=== PATIENT | female | born 1945 | race Caucasian/White ===

== ENCOUNTER → 2017-03-06 | Outpatient (CLI) | payer MEDICARE ==
--- NOTE | 2017-03-06 16:04 | BD ---
EXAMINATION TYPE: MG DEXA axial skeleton. DATE OF EXAM: 03/06/2017 CLINICAL HISTORY: Postmenopausal symptoms. Height: 60.75 Weight: 124 FRAX RISK QUESTIONS: Alcohol (3 or more units per day): no Family History (Parent hip fracture): no Glucocorticoids (More than 3mos): yes (Ex: prednisone, prednisolone, methylprednisolone, dexamethasone, and hydrocortisone). History of Fracture in Adulthood: yes Secondary Osteoporosis: 1. Type 1 Diabetes: no 2. Hyperthyroidism: no 3. Menopause before 45: no 4. Malnutrition: no 5. Chronic liver disease: no Rheumatoid Arthritis: no Current Tobacco Use: no RISK FACTORS HISTORY OF: Hip Fracture (Right/Left): no Spine Fracture: no History of Wrist Fracture: yes, right When: about 7 years ago Surgery to Wrist (right): yes When: about 7 years ago Family History of Osteoporosis: no Active: yes Diet low in dairy products/other sources of calcium: no Postmenopausal woman: yes Take estrogen and/or progesterone medications: no Lost more than 2 inches in height since high school: unsure, states may have been 62 or 63 inches joanne l at one time Frequent falls: no Poor Health: no Hyperparathyroidism: no Adrenal Insufficiency: no MEDICATIONS: Prednisone or other steroids: yes How Long: at least over 10 years Thyroid Medications: no Osteoporosis Medications: no Additional Medications: blood pressure meds EXAM MEASUREMENTS: Bone mineral densitometry was performed using the [employer]. Bone mineral density as measured about the Lumbar spine is: ----- L1-L4(G/cm2): 0.895 T Score Values are as follows: ----- L2: -2.9 ----- L3: -2.2 ----- L4: -2.2 ----- L1-L4: -2.4 Bone mineral density BASELINE Bone mineral density about the R hip (g/cm2): 0.619 Bone mineral density about the L hip (g/cm2): 0.626 T Score values are as follows: -----R Neck: -3.0 -----L Neck: -3.0 -----R Total: -2.3 -----L Total: -2.3 Bone mineral density BASELINE IMPRESSION: Osteopenia (T Score between -2.5 and -1 as noted by T score values) in regards to both hips. There is slightly increased risk of fracture and the patient may be considered for treatment. Re-Screen 2-5 years. NOTE: T-SCORE=SD OF THE YOUNG ADULT MEAN.
--- NOTE | 2017-03-10 11:00 | MM ---
Reason for exam: screening (asymptomatic). Last mammogram was performed 1 year and 1 month ago. History: Patient is postmenopausal. Benign stereotactic core biopsy of the right breast, May 21, 2004. Benign stereotactic core biopsy of the right breast, August 13, 2000. Benign excisional biopsy of the left breast, November 08, 1999. Benign excisional biopsy of the left breast, February 27, 1998. Benign excisional biopsy, February 14, 1997. 2 core biopsies of the right breast. Took hormonal contraceptives for 6 years beginning at age 23. Physical Findings: A clinical breast exam by your physician is recommended on an annual basis and results should be correlated with mammographic findings. MG 3D Screening Mammo W/Cad Bilateral CC and MLO view(s) were taken. Prior study comparison: February 06, 2016, bilateral MG 3d screening mammo w/cad. February 02, 2015, bilateral MG screening mammo w CAD. January 27, 2014, bilateral MG diagnostic mammo w CAD [facility]. There are scattered fibroglandular densities. Post biopsy change on the right breast. ASSESSMENT: Benign, BI-RAD 2 RECOMMENDATION: Routine screening mammogram of both breasts in 1 year.
== END | disposition home or self-care (01) ==
LOC: RADMAMWWP 12:43
PROVIDERS: ATTEND Family Medicine
DX: Z12.31 Encounter for screening mammogram for malignant neoplasm of breast (principal); M85.852 Other specified disorders of bone density and structure, left thigh; M85.851 Other specified disorders of bone density and structure, right thigh
CPT/HCPCS: 77080; 77063; G0202

== ENCOUNTER 2018-03-09 07:13 | Day surgery (SDC) | payer MEDICARE ==
[2018-03-04 15:45] VITALS: BMI 22.1
[~2018-03-09 07:13] MED LIST: LACTATED RINGERS 1,000 ML IV SCH; LIDOCAINE 1% 20 ML VIAL (10MG/ML) FOR IV START INTRADERMA PRN
[2018-03-09 07:31] VITALS: RESP 16; TEMP 98
[2018-03-09] MEDS ORDERED: LIDOCAINE 1% INJ 10MG/ML (20 ML MDV) ONE (08:46)
[2018-03-09] MEDS ORDERED: PROPOFOL 10 MG/ML 20 ML VIAL IV ONE (08:46)
--- NOTE | 2018-03-09 08:50 | P.GSHP ---
History of Present Illness H&P Date: 03/09/18 Chief Complaint: Screening colonoscopy This is a 72-year-old female referred from Dr. Moctezuma. Patient rents today for screening colonoscopy. Her last colonoscopy was over 8 years ago. She denies a significant GI complaints. Past Medical History Past Medical History: Asthma, Hypertension Additional Past Medical History / Comment(s): HX POLYPS History of Any Multi-Drug Resistant Organisms: None Reported Past Surgical History: Orthopedic Surgery Additional Past Surgical History / Comment(s): RT ARM ORIF WITH PLATE AND SCREWS , LEFT CATARACT Past Anesthesia/Blood Transfusion Reactions: No Reported Reaction Smoking Status: Former smoker - Past Family History Father Family Medical History: Cancer Additional Family Medical History / Comment(s): PROSTATE Medications and Allergies Home Medications Medication Instructions Recorded Confirmed Type Albuterol Nebulized [Ventolin 1 applic INHALATION Q4-6H PRN 03/04/18 03/09/18 History Nebulized] Albuterol Sulfate [Proair Hfa] 1 - 2 puff INHALATION Q6HR PRN 03/04/18 03/09/18 History Losartan Potassium 50 mg PO QAM 03/04/18 03/09/18 History Naproxen Sodium [Aleve] 220 mg PO Q12H PRN 03/04/18 03/09/18 History Allergies Allergy/AdvReac Type Severity Reaction Status Date / Time No Known Allergies Allergy Verified 03/09/18 07:31 Surgical - Exam Vital Signs Temp Pulse Resp BP Pulse Ox 98.0 F 85 16 168/75 95 03/09/18 07:29 03/09/18 07:29 03/09/18 07:29 03/09/18 07:29 03/09/18 07:29 - General well developed, no distress - Eyes PERRL - ENT normal pinna - Neck no masses - Respiratory normal expansion - Cardiovascular Rhythm: regular - Abdomen Abdomen: soft, non tender Assessment and Plan Assessment: We'll perform screening colonoscopy.
[2018-03-09] MEDS: LACTATED RINGERS 1,000 ML IV ONE ×2 (09:01→09:42)
[2018-03-09 09:17] VITALS: BP 144/80; PULSE 69
--- NOTE | 2018-03-09 09:27 | P.OP ---
Date of Procedure: 03/09/18 Preoperative Diagnosis: Screening colonoscopy Postoperative Diagnosis: Diverticulosis Hemorrhoids Procedure(s) Performed: Colonoscopy Anesthesia: MAC Surgeon: Armando Hines Pathology: none sent Condition: stable Disposition: PACU Description of Procedure: The patient's placed on the endoscopy table in the lateral position. She received IV sedation. Digital rectal exam was performed which revealed internal and external hemorrhoids. The flexible colonoscope was then placed patient anus and passed throughout the entire colon. The ileocecal valve was visualized. The cecum, ascending and transverse colon appeared normal. The descending and sigmoid colon had a few scattered diverticula. The scope was then brought back the rectum and this appeared normal. Scope was withdrawn from the patient. Internal and external Hemorrhoids were noted.
== END 2018-03-09 09:50 | disposition home or self-care (01) ==
LOC: ORWHC2ENDO 07:13
PROVIDERS: ATTEND Surgery
DX: Z12.11 Encounter for screening for malignant neoplasm of colon (principal); K57.30 Diverticulosis of large intestine without perforation or abscess without bleeding; K64.8 Other hemorrhoids; K64.4 Residual hemorrhoidal skin tags; J45.909 Unspecified asthma, uncomplicated; I10 Essential (primary) hypertension; Z79.899 Other long term (current) drug therapy; Z87.891 Personal history of nicotine dependence
CPT/HCPCS: J2001; J2704; G0121

== ENCOUNTER → 2018-03-13 | Outpatient (CLI) | payer MEDICARE ==
[2018-03-04 15:10] VITALS: BMI 22.1
--- NOTE | 2018-03-23 11:00 | MM ---
Reason for exam: screening (asymptomatic). Last mammogram was performed 1 year ago. History: Patient is postmenopausal. Benign stereotactic core biopsy of the right breast, May 21, 2004. Benign stereotactic core biopsy of the right breast, August 13, 2000. Benign excisional biopsy of the left breast, November 08, 1999. Benign excisional biopsy of the left breast, February 27, 1998. Benign excisional biopsy, February 14, 1997. 2 core biopsies of the right breast. Took hormonal contraceptives for 6 years beginning at age 23. Physical Findings: A clinical breast exam by your physician is recommended on an annual basis and results should be correlated with mammographic findings. MG 3D Screening Mammo W/Cad Bilateral CC and MLO view(s) were taken. Prior study comparison: March 06, 2017, bilateral MG 3d screening mammo w/cad. February 06, 2016, bilateral MG 3d screening mammo w/cad. There are scattered fibroglandular densities. Benign appearing bilateral calcifications. Post biopsy change bilaterally. ASSESSMENT: Benign, BI-RAD 2 RECOMMENDATION: Routine screening mammogram of both breasts in 1 year.
== END | disposition home or self-care (01) ==
LOC: RADMAMWWP 07:30
PROVIDERS: ATTEND Family Medicine
DX: Z12.31 Encounter for screening mammogram for malignant neoplasm of breast (principal)
CPT/HCPCS: 77063; 77067

== ENCOUNTER → 2019-03-30 | Outpatient (CLI) | payer MEDICARE ==
--- NOTE | 2019-04-01 09:54 | MM ---
Reason for exam: screening (asymptomatic). Last mammogram was performed 1 year and 1 month ago. History: Patient is postmenopausal. Benign stereotactic core biopsy of the right breast, May 21, 2004. Benign stereotactic core biopsy of the right breast, August 13, 2000. Benign excisional biopsy of the left breast, November 08, 1999. Benign excisional biopsy of the left breast, February 27, 1998. Benign excisional biopsy, February 14, 1997. 2 core biopsies of the right breast. Took hormonal contraceptives for 6 years beginning at age 23. Physical Findings: A clinical breast exam by your physician is recommended on an annual basis and results should be correlated with mammographic findings. MG 3D Screening Mammo W/Cad Bilateral CC and MLO view(s) were taken. Prior study comparison: March 13, 2018, bilateral MG 3d screening mammo w/cad. March 06, 2017, bilateral MG 3d screening mammo w/cad. There are scattered fibroglandular densities. Previous mammotome biopsy in the right breast x 2. No significant changes when compared with prior studies. ASSESSMENT: Negative, BI-RAD 1 RECOMMENDATION: Routine screening mammogram of both breasts in 1 year.
== END | disposition home or self-care (01) ==
LOC: RADMAMWWP 07:45
PROVIDERS: ATTEND Family Medicine
DX: Z12.31 Encounter for screening mammogram for malignant neoplasm of breast (principal)
CPT/HCPCS: 77063; 77067

== ENCOUNTER → 2021-03-01 | Outpatient (CLI) | payer MEDICARE ==
--- NOTE | 2021-03-05 08:09 | MM ---
Reason for exam: screening (asymptomatic). Last mammogram was performed 1 year and 11 months ago. History: Patient is postmenopausal. Benign stereotactic core biopsy of the right breast, May 21, 2004. Benign stereotactic core biopsy of the right breast, August 13, 2000. Benign excisional biopsy of the left breast, November 08, 1999. Benign excisional biopsy of the left breast, February 27, 1998. Benign excisional biopsy, February 14, 1997. 2 core biopsies of the right breast. Took hormonal contraceptives for 6 years beginning at age 23. Physical Findings: A clinical breast exam by your physician is recommended on an annual basis and results should be correlated with mammographic findings. MG 3D Screening Mammo W/Cad Bilateral CC and MLO view(s) were taken. Prior study comparison: March 30, 2019, bilateral MG 3d screening mammo w/cad. March 13, 2018, bilateral MG 3d screening mammo w/cad. The breast tissue is heterogeneously dense. This may lower the sensitivity of mammography. Stable benign calcifications. There is chronic nodularity in the right breast. There is no dominant lesion. No significant changes when compared with prior studies. ASSESSMENT: Benign, BI-RAD 2 RECOMMENDATION: Routine screening mammogram of both breasts in 1 year.
== END | disposition home or self-care (01) ==
LOC: RADMAMWWP 09:31
PROVIDERS: ATTEND Family Medicine
DX: Z12.31 Encounter for screening mammogram for malignant neoplasm of breast (principal)
CPT/HCPCS: 77063; 77067

== ENCOUNTER → 2022-03-04 | Outpatient (CLI) | payer MEDICARE, OTHER ==
--- NOTE | 2022-03-05 08:38 | MM ---
Reason for Exam: Screening (asymptomatic). Last mammogram was performed 1 year(s) and 1 month(s) ago. Patient History: Menarche at age 9. First Full-Term at age 20. Postmenopausal. Hormonal Contraceptives, starting at age 23 for 6 years. Core Biopsy on the Right side. Core Biopsy on the Right side. 11/08/1999, Benign Excisional Biopsy on the left side. 05/21/2004, Benign Stereotactic Core Biopsy on the right side. 08/13/2000, Benign Stereotactic Core Biopsy on the right side. 02/27/1998, High risk Excisional Biopsy on the left side. Benign Excisional Biopsy. Risk Values: Elsa 5 year model risk: 2.6%. NCI Lifetime model risk: 4.9%. Prior Study Comparison: 03/13/2018 Bilateral Screening Mammogram, [facility]. 03/30/2019 Bilateral Screening Mammogram, [facility]. 03/01/2021 Bilateral Screening Mammogram, [facility]. Tissue Density: There are scattered fibroglandular densities. Findings: Analyzed By CAD. Biopsy markers are seen within the right breast. There is benign-appearing bilateral calcifications present. There is no suspicious group of microcalcifications or new suspicious mass in either breast. Overall Assessment: Benign, BI-RAD 2 Management: Screening Mammogram of both breasts in 1 year. A clinical breast exam by your physician is recommended on an annual basis and results should be correlated with mammographic findings. Electronically signed and approved by: Blake Kaufman DO
== END | disposition home or self-care (01) ==
LOC: RADMAMWWP 09:03
PROVIDERS: ATTEND Family Medicine
DX: Z12.31 Encounter for screening mammogram for malignant neoplasm of breast (principal)
CPT/HCPCS: 77063; 77067

== ENCOUNTER → 2023-03-06 | Outpatient (CLI) | payer MEDICARE ==
--- NOTE | 2023-03-07 20:28 | MM ---
Reason for Exam: Screening (asymptomatic). Last screening mammogram was performed 12 month(s) ago. Patient History: Menarche at age 9. First Full-Term at age 20. Postmenopausal. Hormonal Contraceptives, starting at age 23 for 6 years. Core Biopsy on the Right side. Core Biopsy on the Right side. 11/08/1999, Benign Excisional Biopsy on the left side. 05/21/2004, Benign Stereotactic Core Biopsy on the right side. 08/13/2000, Benign Stereotactic Core Biopsy on the right side. 02/27/1998, High risk Excisional Biopsy on the left side. Benign Excisional Biopsy. Risk Values: Elsa 5 year model risk: 2.5%. NCI Lifetime model risk: 4.5%. Prior Study Comparison: 02/06/2016 Bilateral Screening Mammogram, [facility]. 03/06/2017 Bilateral Screening Mammogram, [facility]. 03/13/2018 Bilateral Screening Mammogram, [facility]. 03/30/2019 Bilateral Screening Mammogram, [facility]. 03/01/2021 Bilateral Screening Mammogram, [facility]. 03/04/2022 Bilateral MG 3D screening mammo w/cad, [facility]. Tissue Density: There are scattered fibroglandular densities. Findings: Analyzed By CAD. 2 microclips right breast from prior biopsy. No significant change from prior exams. Overall Assessment: Negative, BI-RAD 1 Management: Screening Mammogram of both breasts in 1 year. . Patient should continue monthly self-breast exams. A clinical breast exam by your physician is recommended on an annual basis. This exam should not preclude additional follow-up of suspicious palpable abnormalities. Note on Elsa scores and lifetime risk: 1. A Elsa score greater than 3% is considered moderate risk. If this is the case, consider specialist referral to assess eligibility for a risk reducing agent. 2. If overall lifetime risk for the development of breast cancer is 20% or higher, the patient may qualify for future screening with alternating mammogram and breast MRI. Electronically signed and approved by: Nisha Ordonez M.D. Radiologist
== END | disposition home or self-care (01) ==
LOC: RADMAMWWP 10:35
PROVIDERS: ATTEND Family Medicine
DX: Z12.31 Encounter for screening mammogram for malignant neoplasm of breast (principal); Z78.0 Asymptomatic menopausal state
CPT/HCPCS: 77063; 77067